=== PATIENT | female | born 1960 | race Caucasian/White ===

== ENCOUNTER 2020-03-23 09:13 | Outpatient (CLI) | payer OTHER, SELFPAY ==
--- NOTE | ~2020-03-23 | MM_ITS ---
EXAMINATION: MM screening [facility] BI w liz HISTORY: Screening mammogram TECHNIQUE: Craniocaudal and mediolateral oblique 3-D tomosynthesis images were obtained and synthetic 2-D images were generated. CAD analysis was submitted and interpreted. COMPARISON: Comparison to multiple prior studies sequentially, with oldest reviewed study dated 03/10. BREAST PARENCHYMAL COMPOSITION: The breasts are heterogeneously dense, which may obscure small masses . FINDINGS: There is no evidence of suspicious mass, calcification, or architectural distortion to sugg est malignancy in either breast. There has been no suspicious interval change. IMPRESSION: 1. No mammographic evidence of malignancy. 2. Recommend routine screening mammography in one year. BI-RADS Category 1: Negative Reviewed, dictated and finalized at location A.
== END 2020-03-23 09:14 | disposition home or self-care (01) ==
LOC: ANHIMG 09:15
PROVIDERS: Visit Provider Advanced Practice Midwife
DX: Z12.31 Encounter for screening mammogram for malignant neoplasm of breast (principal)
CPT/HCPCS: 77063; 77067

== ENCOUNTER 2021-04-26 09:52 | Outpatient (CLI) | payer OTHER, SELFPAY ==
--- NOTE | ~2021-04-26 | MM_ITS ---
EXAMINATION: MM screening [facility] BI w liz HISTORY: Screening mammogram TECHNIQUE: Craniocaudal and mediolateral oblique 3-D tomosynthesis images were obtained and synthetic 2-D images were generated. CAD analysis was submitted and interpreted. COMPARISON: 03/23/2020, 03/12/2019, 02/11/2017 BREAST PARENCHYMAL COMPOSITION: The breasts are heterogeneously dense, which may obscure small masses . FINDINGS: There is no evidence of suspicious mass, calcification, or architectural distortion to sugg est malignancy in either breast. There has been no suspicious interval change. IMPRESSION: 1. No mammographic evidence of malignancy. 2. Recommend routine screening mammography in one year. BI-RADS Category 1: Negative Reviewed, dictated and finalized at location A.
== END 2021-04-26 09:53 | disposition home or self-care (01) ==
LOC: ANHIMG 09:55
PROVIDERS: PCP Family Medicine; Visit Provider Nurse Practitioner Obstetrics & Gynecology
DX: Z12.31 Encounter for screening mammogram for malignant neoplasm of breast (principal)
CPT/HCPCS: 77063; 77067

== ENCOUNTER → 2021-05-07 02:24 | Outpatient (CLI) | payer OTHER, SELFPAY ==
[2021-05-08 15:38] LABS: SARS-CoV-2 RNA PCR Negative
== END ==
PROVIDERS: PCP Family Medicine; Visit Provider Internal Medicine Gastroenterology
DX: Z01.812 Encounter for preprocedural laboratory examination (principal); Z20.822 Contact with and (suspected) exposure to COVID-19
CPT/HCPCS: C9803; U0003; U0005

== ENCOUNTER 2021-05-10 00:31 | Day surgery (SDC) | payer OTHER, SELFPAY ==
[2021-05-01 09:44] VITALS: BMI 24.9
[2021-05-10 09:57] VITALS: BP 134/75; PULSE 61; RESP 16; TEMP 36.3; O2SAT 100; BMI 24.2
[2021-05-10] MEDS: LACTATED RINGERS 1,000 ML 30 ML IV CONT (10:22)
--- NOTE | 2021-05-10 10:22 | WPDGICN ---
Assessment and Plan Assessment and plan (1) Family history of colon cancer in father: Code(s): Z80.0 - Family history of malignant neoplasm of digestive organs Status: Acute Assessment and Plan: Patient's father had colon cancer. Plan is for screening colonoscopy now and consider this at intervals in the future. GI Consult Note Consult date/time: 05/10/21 10:22 HPI: Maggie Forde is a 60 year old female Presents for screening colonoscopy. Patient reports that her current weight appetite bowel movements are normal. Her family history is significant her father had colon cancer. Patient states that her bowel movements are regular. She denies any blood in her stools. She presents for colonoscopy today. Review of Systems Review of Systems: All systems reviewed & are unremarkable except as noted in HPI and below PMFSH Family History Family History (Updated 05/10/16 @ 23:19 by DOCTOR UNKNOWN) Father Hypertension Carcinoma of colon Family history of diabetes mellitus in first degree relative Sibling Family history of diabetes mellitus in first degree relative Other Family history of cardiovascular disease Social History Social History Smoking status: Never smoker Alcohol intake: current Drinks per week: 6 Living arrangements: with family Spiritual care concerns: No Meds Home Medications and Allergies Home Medications Medication Instructions Recorded Confirmed Type calcium carbonate 250 mg PO DAILY 05/01/21 05/10/21 History ergocalciferol (vitamin D2) 1,000 unit PO DAILY 05/01/21 05/10/21 History [Vitamin D2] multivit with min-folic acid 1 tablet PO DAILY 05/01/21 05/10/21 History [Adult One Daily Multivitamin] Allergies Allergy/AdvReac Type Severity Reaction Status Date / Time No Known Allergies Allergy Verified 05/10/21 09:56 Vital Signs Vital Signs - 24 hr 05/10/21 09:57 Temperature 97.4 F L Pulse Rate 61 Respiratory Rate 16 Blood Pressure 134/75 Pulse Oximetry 100 Exam Narrative: Physical exam reveals patient be alert. Vital signs stable. HEENT exam is unremarkable. Patient is anicteric. Lungs are clear to auscultation and percussion. Heart is without murmur or extra sounds. Abdominal exam bowel sounds are present soft nontender with no organomegaly. Digital external rectal exam is normal.
--- NOTE | 2021-05-10 10:25 | WPDANESEPPF ---
Anes - Initial Pre Proc Eval Procedure: Operation Date: 05/10/21 10:30 Proposed Procedures p Screening Colonoscopy - Aydin Ca MD Date/Time: 05/10/21 10:25 Surgeon: Aydin Ca MD Pre Op Diagnosis: neoplasm screening Patient Data Age: 60 Gender: F Height: 1.68 m Weight: 68 kg Last Vital Signs Temp 36.3 C L 05/10/21 09:57 Pulse 61 05/10/21 09:57 Resp 16 05/10/21 09:57 BP 134/75 05/10/21 09:57 Pulse Ox 100 05/10/21 09:57 Allergies Allergy/AdvReac Type Severity Reaction Status Date / Time No Known Allergies Allergy Verified 05/10/21 09:56 Home Medications Medication Instructions Recorded Confirmed Type calcium carbonate 250 mg PO DAILY 05/01/21 05/10/21 History ergocalciferol (vitamin D2) 1,000 unit PO DAILY 05/01/21 05/10/21 History [Vitamin D2] multivit with min-folic acid 1 tablet PO DAILY 05/01/21 05/10/21 History [Adult One Daily Multivitamin] Patient hx anesthesia problems: none Family hx anesthesia problems: none PMFSH Family History Family History Father Hypertension Carcinoma of colon Family history of diabetes mellitus in first degree relative Sibling Family history of diabetes mellitus in first degree relative Other Family history of cardiovascular disease Social History Social History Smoking status: Never smoker Alcohol intake: current Drinks per week: 6 Living arrangements: with family Spiritual care concerns: No Anes - Eval Final PreProcedure Day of Procedure 05/10/21 10:25 Patient weight: normal Heart: regular rate and rhythm Lungs: clear to auscultation Airway: Mallampati scale class 1 Neurological: alert and oriented Last oral intake: >/= 8 hours ASA classification: I Emergent: no Anesthetic plan: proceed Anesthesia type and monitoring: general GIVS and standard monitoring Informed Consent: The patient's anesthetic plan and its attendant risks and benefits were discussed with the patient/family/POA. Questions were solicited and answers provided to the satisfaction of the patient/family/POA.
[2021-05-10 10:51] VITALS: BP 125/63; PULSE 50; RESP 16; O2SAT 100
[2021-05-10 11:01] VITALS: BP 127/71; PULSE 55; RESP 16; O2SAT 100
[2021-05-10 11:10] VITALS: BP 137/77; PULSE 50; RESP 16; O2SAT 100
== END 2021-05-10 11:18 | disposition home or self-care (01) ==
PROVIDERS: PCP Family Medicine; Visit Provider Internal Medicine Gastroenterology
PROC: 0DJD8ZZ Inspection of Lower Intestinal Tract, Via Natural or Artificial Opening Endoscopic (ICD-10-PCS; CPT 45378; principal; 2021-05-10 10:30)
DX: Z12.11 Encounter for screening for malignant neoplasm of colon (principal); K64.8 Other hemorrhoids; K57.30 Diverticulosis of large intestine without perforation or abscess without bleeding; Z80.0 Family history of malignant neoplasm of digestive organs
CPT/HCPCS: 45378; C9803; J2704; J7120; U0003; U0005

== ENCOUNTER → 2021-07-17 15:08 | Outpatient (CLI) | payer OTHER, SELFPAY ==
--- NOTE | ~2021-07-17 | XR_ITS ---
XR knee RT 3V DATE: 07/17/2021 15:24 INDICATION: Right knee pain TECHNIQUE: [place] and standing AP and lateral views COMPARISON: None FINDINGS: There is mild loss of height of the medial compartment joint space. No fracture or dislocation, periosteal reaction or bone destruction, radiopaque intra-articular loose body or chondrocalcinosis is detected. IMPRESSION: Mild loss of height of medial compartment joint space suggesting mild degenerative change Reviewed, dictated and finalized at location A. IMPRESSION: Mild loss of height of medial compartment joint space suggesting mi ld degenerative change
== END ==
PROVIDERS: Visit Provider Orthopaedic Surgery
DX: M25.561 Pain in right knee (principal); R93.6 Abnormal findings on diagnostic imaging of limbs
CPT/HCPCS: 73562

== ENCOUNTER 2021-07-18 10:03 | Outpatient (CLI) | payer OTHER, SELFPAY ==
--- NOTE | ~2021-07-18 | US_ITS ---
EXAMINATION: US venous doppler LE RT DATE: 07/18/2021 10:34 INDICATION: Right lower limb pain. TECHNIQUE: Grayscale ultrasound images without and with compression and Doppler ultrasound images of the right lower extremity veins were obtained. COMPARISON: None. FINDINGS: The visualized portions of right common femoral vein, profunda (deep) femoral vein, femoral vein, pop liteal vein, peroneal veins, posterior tibial veins, and greater saphenous vein outflow are patent. T here is a large Villarreal's cyst measuring 5.2 x 2.4 x 3.7 cm. IMPRESSION: 1. No deep venous thrombosis. 2. Large Villarreal's cyst. Reviewed, dictated and finalized at location A.
[2021-07-18 11:26] LABS: Basophils Absolute Auto 0.1 K/mm3 (0.0-0.1); Basophils Percent Auto 0.9 % (0.2-1.2); Eosinophils Absolute Auto 0.2 K/mm3 (0-0.3); Eosinophils Percent Auto 3.3 % (0-4.4); Hematocrit 40.2 % (37.0-47.0); Immature Granulocyte Absolute 0.03 K/mm3 (0.00-0.031); Immature Granulocyte Percent A 0.5 % (0-0.5); Lymphocytes Absolute Auto 1.35 K/mm3 (0.9-3.2); Lymphocytes Percent Auto 23.4 % (18.3-44.2); Mean Corpuscular HGB Conc 32.3 g/dl (32-36); Mean Corpuscular Volume 89.5 fl (80-100); Mean Platelet Volume 10.5 fl (7.4-10.4); Monocytes Absolute Auto 0.5 K/mm3 (0.1-0.6); Neutrophils Absolute Auto 3.7 K/mm3 (1.3-6.7); Neutrophils Percent Auto 63.9 % (45.5-73.1); Platelet Count Result 326 k/mm3 (150-375); Red Blood Count 4.49 M/mm3 (4.2-5.4); Red Cell Distribution Width 14.7 % (11.5-14.5); White Blood Count 5.8 K/mm3 (4.5-10.0)
[2021-07-18 11:46] LABS: CRP < 0.5 mg/dL (<1.0); Uric Acid 4.9 mg/dL (2.5-7.5)
[2021-07-18 12:14] LABS: Erythrocyte Sedimentation Rate 7 mm/hr (0-20)
[2021-07-18 12:20] LABS: Rheumatoid Factor < 8.6 IU/ML (<12)
== END 2021-07-18 10:04 | disposition home or self-care (01) ==
PROVIDERS: PCP Family Medicine; Visit Provider Orthopaedic Surgery
DX: M79.661 Pain in right lower leg (principal); M79.89 Other specified soft tissue disorders; M17.0 Bilateral primary osteoarthritis of knee; M06.9 Rheumatoid arthritis, unspecified; M71.21 Synovial cyst of popliteal space [Baker], right knee
CPT/HCPCS: 36415; 84550; 85025; 85652; 86038; 86140; 86430; 93971

== ENCOUNTER → 2022-04-19 10:30 | Outpatient (CLI) | payer BC, SELFPAY ==
--- NOTE | ~2022-04-19 | MR_ITS ---
EXAMINATION: MR knee RT wo con DATE: 04/19/2022 10:59 INDICATION: Synovial cyst of the popliteal space of the right knee TECHNIQUE: Magnetic resonance imaging (MRI) of the right knee was performed without intravenous contr ast. Sequences included coronal PD-weighted FSE, coronal PD-weighted FS FSE, sagittal T2-weighted FS E, sagittal PD-weighted FS FSE and axial PD weighted fat saturated FSE. COMPARISON: None. FINDINGS: Medial compartment: Longitudinal horizontal tear extending to the intra-articular surface of the body and posterior horn of the medial meniscus. Mild partial-thickness cartilage loss with shallow chondral surface regularit y along the anterior, central portion of the posterior weightbearing medial femoral condyle as well a s at the anterior aspect of the medial tibial plateau. Lateral compartment: Lateral meniscus is normal. Articular cartilage is normal. Patellofemoral compartment: Partial-thickness chondral fissure with mild underlying subarticular edema-like signal change extendi ng across the inferior aspect of the lateral patellar facet. Mild partial-thickness cartilage loss wi th mild surface regularity along the superolateral aspect of the lateral trochlea. Ligaments and tendons: Anterior and posterior cruciate ligaments are normal. The medial collateral ligament and fibular alix ateral ligament complex are normal. Mild tendinopathy and moderate size enthesophyte at the patellar insertion of the distal quadriceps tendon. Patellar tendon is normal. The visualized medial and later al hamstring tendons as well as the iliotibial band are normal. Fluid: Physiologic amount of fluid in the joint space. No loose osteochondral bodies identified. 5.2 x 4.3 x 2.4 cm Villarreal's cyst at the popliteal fossa. Osseous/other: Normal marrow signal aside from the previous noted mild subarticular edema-like signal change at the lateral patellar facet. No fracture or pathologic marrow replacing process. IMPRESSION: 1. 5.2 x 4.3 x 2.4 cm Villarreal's cyst. 2. Longitudinal horizontal tear of the body and posterior horn of the medial meniscus. 3. 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 4. Chronic mild distal quadriceps enthesopathy. Reviewed, dictated and finalized at location A. IMPRESSION: 1. 5.2 x 4.3 x 2.4 cm Villarreal's cyst. 2. Longitudinal horizontal tear of the body and posterior horn of the medial me niscus. 3. 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 4. Chronic mild distal quadriceps enthesopathy.
== END ==
PROVIDERS: PCP Family Medicine; Visit Provider Orthopaedic Surgery
DX: M71.21 Synovial cyst of popliteal space [Baker], right knee (principal); M17.11 Unilateral primary osteoarthritis, right knee; S83.241A Other tear of medial meniscus, current injury, right knee, initial encounter; X58.XXXA Exposure to other specified factors, initial encounter
CPT/HCPCS: 73721

== ENCOUNTER 2022-05-02 10:20 | Outpatient (CLI) | payer BC, SELFPAY ==
--- NOTE | ~2022-05-02 | MMUS_ITS ---
EXAMINATION: MM diagnostic shira LT w liz, US breast LT limited HISTORY: Palpable left breast abnormality. TECHNIQUE: Additional 3-D tomosynthesis images of the left breast were performed and synthetic 2-D im ages were generated. CAD analysis was submitted and interpreted. High resolution Limited left breast ultrasound was performed. COMPARISON: Comparison to multiple prior studies sequentially, with oldest reviewed study dated 02/02. BREAST PARENCHYMAL COMPOSITION: The breasts are heterogenously dense, which may obscure small masses FINDINGS: MAMMOGRAPHIC FINDINGS: There are no suspicious masses, calcifications or architectural distortion in the left breast to sugg est malignancy. ULTRASOUND: Limited left breast ultrasound: Normal heterogeneous echotexture without focal solid or cystic mass. IMPRESSION: 1. No evidence for malignancy in the left breast. 2. Routine yearly screening mammogram and regular clinical breast examination are recommended. BI-RADS Category 1: Negative Reviewed, dictated and finalized at location L. IMPRESSION: 1. No evidence for malignancy in the left breast. 2. Routine yearly screening mammogram and regular clinical breast examination a re recommended. BI-RADS Category 1: Negative
== END 2022-05-02 10:21 | disposition home or self-care (01) ==
PROVIDERS: PCP Family Medicine; Visit Provider Obstetrics & Gynecology
DX: N63.22 Unspecified lump in the left breast, upper inner quadrant (principal)
CPT/HCPCS: 76642; 77061; 77065; G0279

== ENCOUNTER 2023-02-24 09:06 | Outpatient (CLI) | payer BC, SELFPAY ==
--- NOTE | ~2023-02-24 | MM_ITS ---
EXAMINATION: MM screening [facility] BI w liz HISTORY: Screening mammogram TECHNIQUE: Craniocaudal and mediolateral oblique 3-D tomosynthesis images were obtained and synthetic 2-D images were generated. CAD analysis was submitted and interpreted. COMPARISON: 05/02/2022, 04/26/2021, 03/23/2020 BREAST PARENCHYMAL COMPOSITION: The breasts are heterogeneously dense, which may obscure small masses . FINDINGS: No suspicious mass, calcification, or architectural distortion are identified in either remberto ast to suggest malignancy. There has been no suspicious interval change. IMPRESSION: 1. No mammographic evidence of malignancy. 2. Recommend routine screening mammography in one year. BI-RADS Category 1: Negative Reviewed, dictated and finalized at location A.
== END 2023-02-24 09:07 | disposition home or self-care (01) ==
LOC: ANHIMG 09:12
PROVIDERS: PCP Family Medicine; Visit Provider Obstetrics & Gynecology
DX: Z12.31 Encounter for screening mammogram for malignant neoplasm of breast (principal)
CPT/HCPCS: 77063; 77067

== ENCOUNTER → 2023-04-02 14:20 | Outpatient (CLI) | payer BC, SELFPAY ==
--- NOTE | ~2023-04-02 | CT_ITS ---
Clinical Indication: Pulmonary nodule CT Scan of the Chest with Contrast: Technique: Contiguous sections were acquired throughout the chest after intravenous administration of 75 cc of Omnipaque 350. Dose reduction technique was used on this scan by utilizing automated exposu re control and iterative reconstruction technique. The dose-length product (DLP) was 169.02 mGy-cm. Findings: There is no evidence of any significant mediastinal, hilar or axillary lymphadenopathy. No large cent ral pulmonary embolus seen. There is no evidence of aortic dissection or aneurysm. There is no evidence of pleural or pericardial effusion. There is minimal biapical scarring. Several tiny calcified granulomas are present. No suspicious pulm onary nodule or consolidation. Images through the upper abdomen reveal no abnormalities. Impression: No evidence of pulmonary embolus, aortic dissection, or aortic aneurysm. No significant pulmonary abnormality. Reviewed, dictated and finalized at [facility]. Impression: No evidence of pulmonary embolus, aortic dissection, or aortic aneurysm. No significant pulmonary abnormality.
[2023-04-02 14:43] LABS: Estimated Glomerular Filt Rate > 60
== END ==
PROVIDERS: PCP Family Medicine; Visit Provider Family Medicine
DX: R91.1 Solitary pulmonary nodule (principal)
CPT/HCPCS: 71260; Q9967

== ENCOUNTER → 2023-07-12 10:22 | Outpatient (CLI) | payer BC, SELFPAY ==
--- NOTE | ~2023-07-12 | MR_ITS ---
EXAMINATION: MR cervical spine wo con DATE: 07/12/2023 11:05 INDICATION: Right-sided neck pain and tightness. TECHNIQUE: Magnetic resonance imaging (MRI) of the cervical spine was performed without intravenous c ontrast. Sequences included sagittal T2-weighted FSE, sagittal T2-weighted FS FSE, sagittal T1-weight ed FSE, axial MERGE, and axial T2-weighted FSE. COMPARISON: None FINDINGS: There is 5 degrees levocurvature of cervical spine. Vertebral body heights are normal. Ther e is mildly decreased disc height at C4-C5 and moderately decreased disc height at C6-C7. The spinal cord signal intensity is normal. The following disc levels are specifically discussed: C2-C3: The disc does not extend beyond the endplate margin. There is no uncovertebral joint osteoarth ritis. There is severe bilateral facet joint osteoarthritis. There is mild bilateral neural foraminal stenosis. There is no central canal stenosis. C3-C4: The disc does not extend beyond the endplate margin. There is moderate left uncovertebral join t osteoarthritis. There is severe bilateral facet joint osteoarthritis. There is mild bilateral neura l foraminal stenosis. There is no central canal stenosis. C4-C5: The disc does not extend beyond the endplate margin. There is no uncovertebral joint osteoarth ritis. There is severe right facet joint osteoarthritis. There is mild right neural foraminal stenosi s. There is no central canal stenosis. C5-C6: The disc is bulging. There is mild right and moderate left uncovertebral joint osteoarthritis. There is severe right and mild left facet joint osteoarthritis. There is mild bilateral neural malik inal stenosis. There is mild central canal stenosis. C6-C7: The disc is bulging. There is severe right and moderate left uncovertebral joint osteoarthriti s. There is moderate right and severe left facet joint osteoarthritis. There is moderate right and mi ld left neural foraminal stenosis. There is mild central canal stenosis. C7-T1: The disc does not extend beyond the endplate margin. There is mild bilateral uncovertebral agustina nt osteoarthritis. There is mild right and severe left facet joint osteoarthritis. There is mild bila teral neural foraminal stenosis. There is no central canal stenosis. IMPRESSION: 1. Moderate cervical spondylosis. Reviewed, dictated and finalized at location E.
== END ==
PROVIDERS: PCP Family Medicine; Visit Provider Family Medicine
DX: M47.892 Other spondylosis, cervical region (principal)
CPT/HCPCS: 72141

== ENCOUNTER 2024-04-08 08:55 | Outpatient (CLI) | payer BC, SELFPAY ==
--- NOTE | ~2024-04-08 | MM_ITS ---
EXAMINATION: MM screening shira BI w liz HISTORY: Screening mammogram TECHNIQUE: Craniocaudal and mediolateral oblique 3-D tomosynthesis images were obtained and synthetic 2-D images were generated. CAD analysis was submitted and interpreted. COMPARISON: 02/24/2023, 05/02/2022, 04/26/2021 BREAST PARENCHYMAL COMPOSITION:Dense: The breasts are heterogeneously dense, which may obscure small masses. FINDINGS: There is a 1.5 cm low-density mass at the slightly upper, slightly inner right breast. No o ther suspicious interval change. No suspicious about the left breast. IMPRESSION: 1.5 cm low-density upper, inner right breast mass. Spot compression views and ultrasound are recomme nded for further evaluation. BI-RADS Category 0: Incomplete: Needs additional imaging evaluation. Reviewed, dictated and finalized at location . IMPRESSION: 1.5 cm low-density upper, inner right breast mass. Spot compression views and ultrasound are recommended for further evaluation. BI-RADS Category 0: Incomplete: Needs additional imaging evaluation.
== END 2024-04-08 08:56 | disposition home or self-care (01) ==
PROVIDERS: PCP Family Medicine; Visit Provider Obstetrics & Gynecology
DX: Z12.31 Encounter for screening mammogram for malignant neoplasm of breast (principal); N63.12 Unspecified lump in the right breast, upper inner quadrant
CPT/HCPCS: 77063; 77067

== ENCOUNTER 2024-04-20 11:23 | Outpatient (CLI) | payer BC, SELFPAY ==
--- NOTE | ~2024-04-20 | MMUS_ITS ---
EXAMINATION: MM diagnostic shira RT w liz, US breast RT limited HISTORY: Follow-up right breast mass seen on prior examination TECHNIQUE: Additional 3-D tomosynthesis images of the right breast were performed and synthetic 2-D i mages were generated. CAD analysis was submitted and interpreted. High resolution Limited right breas t ultrasound was performed. COMPARISON: Comparison to multiple prior studies sequentially, with oldest reviewed study dated 03/12. BREAST PARENCHYMAL COMPOSITION: Not dense: There are scattered areas of fibroglandular density. FINDINGS: MAMMOGRAPHIC FINDINGS: There is a persistent low-density mass in the upper central aspect of the right breast. There is a st able mass posterior medially in the right breast on CC view, unchanged. There are no suspicious calci fications or architectural distortion. ULTRASOUND: Limited right breast ultrasound: At 9:00, 5 cm from the nipple, there is a cluster of cysts, largest appearing approximately 9 mm. At 12:00, 4 cm from the nipple there is a 1.6 cm cyst, likely correspon ding to the mammographic finding. IMPRESSION: 1. No evidence for malignancy in the right breast. Benign findings. 2. Routine yearly screening mammogram and regular clinical breast examination are recommended. BI-RADS CATEGORY 2 - BENIGN FINDINGS Reviewed, dictated and finalized at location B. IMPRESSION: 1. No evidence for malignancy in the right breast. Benign findings. 2. Routine yearly screening mammogram and regular clinical breast examination a re recommended. BI-RADS CATEGORY 2 - BENIGN FINDINGS
== END 2024-04-20 11:24 | disposition home or self-care (01) ==
LOC: ANHIMG 11:24
PROVIDERS: PCP Family Medicine; Visit Provider Obstetrics & Gynecology
DX: R92.8 Other abnormal and inconclusive findings on diagnostic imaging of breast (principal)
CPT/HCPCS: 76642; 77061; 77065; G0279

== ENCOUNTER 2025-07-11 09:36 | Outpatient (CLI) | payer BC, SELFPAY ==
--- OUTSIDE RECORDS SUMMARY | 2024-06-22 03:45 | XMS_ITS ---
Author Organization [facility] Address [address] [place] [phone] Care Team Providers Care Cryogenics Repairer Name Role Phone Dr. aJcque Crane Primary Care Provider [phone] Herminia Mckinney Unavailable [phone] REASON FOR VISIT Yearly Check Up with [...] 06/22/2024 Encounters Encounter Location Date Provider Diagnosis [address] [address] 06/22/2024 Herminia Mckinney Encounter for genera l [...] Next Appt Details Provider Name:Dr. Jacque Dunbar [facility], 05/22/2026 09:30:00 AM, [address] [place], [address], [phone] Progress Notes * CASSANDRA JanetAnnOB:[birth year] (64 yo F)Acc No.[id number]:06/22/2024 Patient: Maggie Freitas Provider: Leslie Mckinney NP :1960 A ge:63 Y S ex:Female Date:06/22/2024 Phone: Address:[address] [place] [phone] Pcp:Dr. Jacque Crane Subjective: * Chief Complaints: [...] * Electronic signature of Dominik Mckinney on 07/11/2025 at 10:04 AM CDT Sign off status: Pending * Provider: Leslie Mckinney NP Date: 06/22/2024 Generated for Latesha barba/Rossy/Neetuitting on: 07/11/2025 10:04 AM CDT
--- OUTSIDE RECORDS SUMMARY | 2024-09-11 04:00 | XMS_ITS ---
Author Organization [facility] Address [address] [place] [phone] Care Team Providers Care Corporate Planner Name Role Phone Dr. Jacque Crane Primary Care Provider [phone] Migration, Provider Unavailable Unavailable REASON FOR VISIT EMR-Jayden Encounters Encounter Location Date Provider Diagnosis [facility] [address] [place] [address] 09/11/2024 Provider Migration Plan Of Treatment Medication [...] Provider Name:Dr. Jacque rodas, 05/22/2026 09:30:00 AM, [address] [place] [address], [place], [address], [phone] Progress Notes * Zachariah FORDEOB:[birth year] (64 yo F)Acc No.[id number]:09/11/2024 Patient: Maggie BUNCH :1960 A ge:64 Y S ex:Female Phone: Address:[address] [place] [address], [phone] * Refills Stop Cyclobenzaprine HCl Tablet, 5 [...]
--- OUTSIDE RECORDS SUMMARY | 2024-09-12 04:00 | XMS_ITS ---
Author Organization [facility] Address [address] [place] [address] [place] [address] Care Team Providers Care Potato Peeler Name Role Phone Dr. Jacque Crane Primary Care Provider [phone] Migration, Provider Unavailable Unavailable Allergies Allergen (clinical [...] only Encounters Encounter Location Date Provider Diagnosis [facility] [address] [place] [address] 09/12/2024 Provider Migration Plan Of Treatment Next Appt Details Provider Name:Dr. Jacque Dunbar [facility], 05/22/2026 09:30:00 AM, [address] [facility], [place], [address], [phone] Progress Notes * FORDEZachariah QUISPEOB:[birth year] (64 yo F)Acc No.[id number]:09/12/2024 Patient: Maggie BUNCH :1960 A ge:64 Y S ex:Female Phone: Address:[address] [place] [address], [place], [address] Subjective: * Chief Complaints: * E MR-Jayden [...]
--- NOTE | ~2025-07-11 | MM_ITS ---
EXAMINATION: MM screening shira BI w liz HISTORY: Screening TECHNIQUE: Craniocaudal and mediolateral oblique 3-D tomosynthesis images were obtained and synthetic 2-D images were generated. CAD analysis was submitted and interpreted. COMPARISON: Comparison to multiple prior studies sequentially, with oldest reviewed study dated 03/23/2020. BREAST PARENCHYMAL COMPOSITION: Dense: The breasts are heterogeneously dense, which may obscure small masses FINDINGS: There are developing obscured masses in the right breast. There are benign-appearing left breast calcifications. No suspicious masses or architectural distortion in the left breast to suggest malignancy. IMPRESSION: 1. New right breast masses. 2. Additional mammographic views and possible breast ultrasound are recommended. BI-RADS Category 0: Incomplete: Needs additional imaging evaluation. Reviewed, dictated and finalized at location B. IMPRESSION: 1. New right breast masses. 2. Additional mammographic views and possible breast ultrasound are recommended . BI-RADS Category 0: Incomplete: Needs additional imaging evaluation.
--- OUTSIDE RECORDS SUMMARY | 2025-07-11 10:04 | XMS_ITS | Clinical Summary ---
Author Organization [facility] Address [address] [place] [address] Care Team Providers Care Custody Officer Name Role Phone Dong Casper MD Primary Care Provider [phone] Allergies No known active allergies Medications No known medications Active Problems No known active problems Surgical History Surgery Date Site/Laterality Comments HYSTERECTOMY 10/13/2009 - 10/12/2010 LAMINECTOMY 10/13/2011 - 10/12/2012 MASS EXCISION 07/14/2019 Right forehead Social History Tobacco Use Types Packs/Day Years Used Date Smoking Tobacco: Never Personal Safety Answer Date Recorded Getting School Help Needed Not on file 12/27 Comments Unknown Sex and Gender Information Value Date Recorded Sex Assigned at Not on file Legal Sex Female 2:01 PM CDT Gender Identity Not on file Sexual Orientation Not on file Obstetrics History Last Filed Vital Signs Vital Sign Reading Time Taken Comments Blood Pressure 139/71 09/21/2020 2:24 PM [employer] Pulse 67 09/21/2020 2:24 PM [employer] Temperature 36.6 C (97.9 F) 09/21/2020 2:24 PM [employer] Respiratory Rate - - Oxygen Saturation 100% 09/21/2020 2:24 PM [employer] Inhaled Oxygen Concentration - - Weight 68 kg (150 lb) 09/21/2020 2:24 PM [employer] Height 167.6 cm (5' 6) 09/21/2020 2:24 PM [employer] Body Mass Index 24.21 09/21/2020 2:24 PM [employer] Plan of Treatment Not on file Insurance [employer] Care Teams Custody Officer Relationship Specialty Start Date End Date Dong Casper MD [address] [place] [address] PCP - General Family Practice 06/22/19
--- OUTSIDE RECORDS SUMMARY | 2025-07-11 10:04 | XMS_ITS | Patient Health Record ---
Author Organization [facility] dicine Address [address] [place] [address] Care Team Providers Care Plan Coordinator Name Role Phone Dr. Jacque Crane Primary Care Provider [phone] Migration, Provider Unavailable Unavailable Allergies Allergen (clinical drug ingredient) Drug/Non Drug Allergy documented on EMR Reaction Allergy Type Onset Date Status escitalopram Lexapro Unknown Drug Allergy 07/02/2021 Act govind Results Component Value Reference Range Flag Notes Uric Acid Reviewed date:05/26/2025 06:34:28 PM Interpretation: Performing Lab: Notes/Report: LOCATION: [facility] Performed by: [place] [address] Veterinarian Poultry: Genaro Bruce DO Uric Acid 5.4 2.3-6.6 mg/dL LOCATION LOCATION: [facility] Iron Level and TIBC Reviewed date:05/26/2025 06:34:28 PM Interpretation: Performing Lab: Notes/Report: LOCATION: [facility] Performed by: [place] [address] Veterinarian Poultry: Genaro Bruce DO Iron Lvl 73 50-212 mcg/dL LOCATION LOCATION: [facility] Transferrin 196 203-362 mg/dL L LOCATION LOCATION: [facility] TIBC 274 250-420 mcg/dL LOCATION LOCATION: [facility] Iron Sat 27 20-55 % LOCATION LOCATION: [facility] Vitamin B12 Reviewed date:05/26/2025 06:34:28 PM Interpretation: Performing Lab: Notes/Report: LOCATION: [facility] Performed by: [place] [address] Veterinarian Poultry: Genaro Bruce DO Vitamin B12 Lvl 788 180-914 pg/mL Vitamin B12 Interpretation: Normal Range: 180-914 pg/mL Indeterminate: 140-180 pg/mL Deficient: <140 pg/mL LOCATION LOCATION: [facility] Thyroid Stimulating Hormone Reviewed date:05/26/2025 06:34:28 PM Interpretation: Performing Lab: Notes/Report: LOCATION: [facility] Test Performed by: [place] [address] Veterinarian Poultry: Genaro Bruce DO TSH 1.00 0.45-5.33 mcIU/mL LOCATION LOCATION: [facility] Magnesium Reviewed date:05/26/2025 06:34:28 PM Interpretation: Performing Lab: Notes/Report: LOCATION: [facility] Test Performed by: [place] [address] Veterinarian Poultry: Genaro Bruce DO Magnesium Lvl 2.1 1.6-2.4 mg/dL LOCATION LOCATION: [facility] Lipid Panel {Chol, Trig, HDL , LDL} Reviewed date:05/26/2025 06:34:28 PM Interpretation: Performing Lab: Notes/Report: LOCATION: [facility] Test Performed by: [place] [address] Veterinarian Poultry: Genaro Bruce DO Cholesterol Total 204 <=199 mg/dL H LOCATION LOCATION: [facility] Triglycerides 86 0-149 mg/dL Triglyceride Reference Ranges: <150 mg/dL Normal 150 - 199 mg/dL Borderline High 200 - 499 mg/dL High >=500 mg/dL Very High LOCATION LOCATION: [facility] LDL 129 <=100 mg/dL H LDL Optimal: <100 Near or above optimal: 100-129 Borderline high: 130-159 High: 160-189 Very high: >=190 Coronary heart disease risk factors should be considered when determining LDL goals. Please refer to ATPIII guidelines for further information. If LDL is not calculated, please call the lab to add on the direct LDL methodology, if desired. LOCATION LOCATION: [facility] HDL 58 23-92 mg/dL LOCATION LOCATION: [facility] Non HDL Cholesterol 147 <=130 mg/dL H LOCATION LOCATION: [facility] Chol/HDL 4 0-5 LOCATION LOCATION: [facility] Comprehensive Metabolic Pane l Reviewed date:05/26/2025 06:34:28 PM Interpretation: Performing Lab: Notes/Report: LOCATION: [facility] Test Performed by: [place] [address] Veterinarian Poultry: Genaro Bruce DO Glucose Lvl 78 74-109 mg/dL ADA risk stratification for diabetes <100 mg/dL = Normal 100-125 mg/dL = Increased risk for future diabetes >=126 mg/dL = Diabetes, if on more than one testing occasion LOCATION LOCATION: [facility] BUN 10 7-25 mg/dL LOCATION LOCATION: [facility] Creatinine Lvl 0.71 0.60-1.20 mg/dL LOCATION LOCATION: [facility] eGFR CKD-EPI >90 >=90 mL/min/1.73 m2 The CKD-EPI equation is validated in individuals 18 years of age and older. It is less accurate in patients with extremes of muscle mass, restriction of dietary protein, ingestion of creatine, extra-renal metabolism of creatinine, or treatment with medications that affect renal tubular creatinine secretion. GFR Categories in Chronic Kidney Disease (CKD) GFR GFR (mL/min/1.73 Category: square meters): Interpretation: G1 90 or greater Normal or high* G2 60-89 Mild decrease* G3a 45-59 Mild to moderate decrease G3b 30-44 Moderate to severe decrease G4 15-29 Severe decrease G5 14 or less Kidney failure *In the absence of evidence of kidney damage, neither GFR category G1 nor G2 fulfill the criteria for CKD (Kidney Int Suppl 2013;3:1-150) LOCATION LOCATION: [facility] Calcium Lvl 8.8 8.6-10.3 mg/dL LOCATION LOCATION: [facility] Sodium Lvl 141 136-145 mmol/L LOCATION LOCATION: [facility] Potassium Lvl 4.9 3.5-5.1 mmol/L LOCATION LOCATION: [facility] Chloride Lvl 105 98-107 mmol/L LOCATION LOCATION: [facility] CO2 32 21-31 mmol/L H LOCATION LOCATION: [facility] Anion Gap 4.4 <=16.0 mmol/L LOCATION LOCATION: [facility] Alk Phos 46 34-104 unit/L LOCATION LOCATION: [facility] Bilirubin Total 0.3 0.3-1.0 mg/dL LOCATION LOCATION: [facility] Albumin Lvl 4.2 3.5-5.2 g/dL LOCATION LOCATION: [facility] Protein Total 6.3 6.4-8.9 g/dL L LOCATION LOCATION: [facility] Albumin/Globulin Ratio 2.0 1.1-2.5 LOCATION LOCATION: [facility] ALT 13 7-52 unit/L LOCATION LOCATION: [facility] AST 20 13-39 unit/L LOCATION LOCATION: [facility] CBC w Auto Diff Reviewed date:05/26/2025 06:34:28 PM Interpretation: Performing Lab: Notes/Report: LOCATION: [facility] Test Performed by: [place] [address] Veterinarian Poultry: Genaro Bruce, WBC 4.5 4.0-11.7 K/mcL LOCATION LOCATION: [facility] RBC 4.50 3.80-5.41 x10*6/mcL LOCATION LOCATION: [facility] Hgb 12.6 11.3-15.2 g/dL LOCATION LOCATION: [facility] Hct 38.7 33.2-45.3 % LOCATION LOCATION: [facility] MCV 85.9 79.5-98.1 fL LOCATION LOCATION: [facility] MCH 28.1 27.0-34.2 pg LOCATION LOCATION: [facility] MCHC 32.7 31.8-35.3 g/dL LOCATION LOCATION: [facility] RDW 14.6 12.0-16.4 % LOCATION LOCATION: [facility] Platelets 238 149-393 K/mcL LOCATION LOCATION: [facility] MPV 9.3 7.0-11.0 fL LOCATION LOCATION: [facility] Neutro Auto 41.5 45.3-79.0 % L LOCATION LOCATION: [facility] Lymph Auto 44.9 11.8-45.9 % LOCATION LOCATION: [facility] [place] Auto 8.8 4.4-12.0 % LOCATION LOCATION: [facility] Eosinophil Auto 4.1 0.0-6.3 % LOCATION LOCATION: [facility] Basophil Auto 0.7 0.2-1.6 % LOCATION LOCATION: [facility] Neutro Absolute 1.9 2.4-8.4 x10*3/mcL L LOCATION LOCATION: [facility] Lymph Absolute 2.0 0.8-3.7 x10*3/mcL LOCATION LOCATION: [facility] [place] Absolute 0.4 0.3-1.1 x10*3/mcL LOCATION LOCATION: [facility] Eos Absolute 0.2 0.0-0.5 x10*3/mcL LOCATION LOCATION: [facility] T4 Free Reviewed date:05/26/2025 06:34:28 PM Interpretation: Performing Lab: Notes/Report: LOCATION: [facility] Test Performed by: [place] [address] Veterinarian Poultry: Genaro Bruce DO T4 Free 0.89 0.60-1.70 ng/dL LOCATION LOCATION: [facility] Ferritin Reviewed date:05/26/2025 06:34:28 PM Interpretation: Performing Lab: Notes/Report: LOCATION: [facility] Test Performed by: [place] [address] Veterinarian Poultry: Genaro Bruce DO Ferritin Lvl 102.0 11.0-306.8 ng/mL LOCATION LOCATION: [facility] Hemoglobin A1c {Glycosylated } Reviewed date:05/26/2025 06:34:28 PM Interpretation: Performing Lab: Notes/Report: LOCATION: [facility] Test Performed by: [place] [address] Veterinarian Poultry: Genaro Bruce DO Hemoglobin A1c 5.3 <=6.4 % Hemoglobin A1C < 5.7% = Normal 5.7-6.4% = Increased risk for future diabetes >=6.5% = Diabetes LOCATION LOCATION: [facility] eAvg Glucose 105 <=117 mg/dL eAG Reference Range <117 mg/dL = Normal 117-137 mg/dL = Increased Risk For Future Diabetes >137 mg/dL = Diabetes LOCATION LOCATION: [facility] Reason For Referral No Information Medications Medication SIG (Take, Route, Frequency, Duration) Notes Start Date End Date Status Magnesium Oxide 400 MG Tablet 1 Oral every day; Duration: 0 02/11/2022 Active Semaglutide 1 mg/dose (4 mg/3 mL) subcutaneous; Duration: 0 *Pick strength-form from [employer] for eRX* 06/22/2024 Active Progesterone 200 MG Capsule 1 capsule at bedtime Orally Once a day Active Biotin 1000 MCG Tablet 1 Oral every day; Duration: 0 02/11/2022 Active Calcium 600 oral; Duration: 0 *Pick strength-form from [employer] for eRX* 02/11/2022 Active Immunizations Vaccine Route Administration Date Status Comme nts Shingrix Unknown 02/11/2022 Administered Shingrix Unknown 06/30/2023 Administered Tdap Unknown 11/17/2018 Administered Tdap Unknown 07/09/2019 Administered Influenza, seasonal, injecta ble, preservative free, 6-35 months Unknown 07/09/2019 Administered Social History Social History Additional Details Category Social Info Options Details Migrated Social History Migrated Social History Tobacco history:Never smoker , Alcohol history:Currently drinks alcohol ,notes : drinks on weekends only Problems Problem Type SNOMED Code ICD Code Onset Dates Problem Status W/U Status Risk Notes Problem Anemia (058788046) Anemia, unspecified (D64.9) 02/12/20 Active confirmed Problem Hyperlipidemia (14107205) Hyperlipidemia, unspecified (E78.5) 06/27/20 Active confirmed Problem Hypomagnesemia (092434289) Hypomagnesemia (E83.42) Active confirmed Problem Spasmodic torticollis (72332560) Spasmodic torticollis (G24.3) 06/27/20 23 Active confirmed Problem Insomnia (057768553) Other insomnia (G47.09) Active confirmed Problem Pulmonary fibrosis (53250658) Pulmonary fibrosis, unspecified (J84.10) 04/04/20 23 Active confirmed Problem Spinal stenosis in cervical region (57306845) Spinal stenosis, cervical region (M48.02) 07/25/20 23 Active confirmed Problem Synovial popliteal cyst of right knee (disorder) (7249776007) Synovial cyst of popliteal space [Villarreal], right knee (M71.21) 02/12/20 22 Active confirmed Problem Paresthesia (finding) (98562698) Paresthesia of skin (R20.2) 06/27/20 23 Active confirmed Problem Postmenopausal state (16868918) Asymptomatic menopausal state (Z78.0) 02/12/20 22 Active confirmed Problem Family history of ischemic heart disease (456479055) Family history of ischemic heart disease and other diseases of the circulatory system (Z82.49) 06/27/20 23 Active confirmed Problem Normal body mass index (34670611) Body mass index (BMI) 24.0-24.9, adult (Z68.24) 06/27/20 23 Active confirmed Vital Signs Heart Rate 91 /min 06/01/2025 Temperature 97.7 degrees Fahrenheit 06/01/2025 Respiratory Rate 18 /min 06/01/2025 Height-cm 167.64 cm 06/01/2025 Oximetry 98 % 06/01/2025 Blood pressure diastolic 76 mm Hg 06/01/2025 Weight-kg 64.59 kg 06/01/2025 Height 66.00 in 06/01/2025 Blood pressure systolic 114 mm Hg 06/01/2025 Weight 142.4 lbs 06/01/2025 BMI 22.98 kg/m2 06/01/2025 Encounters Encounter Location Date Provider Diagnosis [address] [address] 06/01/2025 Dr. Jacque Crane Encounter for other screening for malignant neoplasm of breast Z12.39 ; Encounter for general adult medical examination without abnormal findings Z00.00 ; Other insomnia G47.09 ; Other fatigue R53.83 and Acute allergic rhinitis J30.[address] [address] 09/11/2024 Provider Migration [address] [address] 09/12/2024 Provider Migration [address] [address] 05/25/2025 Dr. Jacque Crane Encounter for general adult medical examination without abnormal findings Z00.00 ; Anemia, unspecified D64.9 ; Hyperlipidemia, unspecified E78.5 ; Elevated vitamin B12 level R79.89 and Hypomagnesemia E83.42 Assessments Encounter Date Diagnosis (ICD Code) Assessment Notes Treatment Notes Treatment Clinical Notes Section Notes 05/25/2025 Encounter for general adult medical examination without abnormal findings (ICD-10 - Z00.00) 06/01/2025 Encounter for general adult medical examination without abnormal findings (ICD-10 - Z00.00) Rec mammogram and colonoscopy when due. bone density every 2 years. discussed routine vaccines. Minicog normal. Discussed PHQ-9 results - feels her stress revolves around her 's health currently. offered counseling and/or medication if needed. Lipids discussed - continue health lifestyle - [place] score is low. 06/01/2025 Encounter for other screening for malignant neoplasm of breast (ICD-10 - Z12.39) Get mammogram with Dr. Dothager and continue routine well women exams. 05/25/2025 Anemia, unspecified (ICD-10 - D64.9) 05/25/2025 Hyperlipidemia, unspecified (ICD-10 - E78.5) 06/01/2025 Other insomnia (ICD-10 - G47.09) 06/01/2025 Other fatigue (ICD-10 - R53.83) 05/25/2025 Elevated vitamin B12 level (ICD-10 - R79.89) 06/01/2025 Acute allergic rhinitis (ICD-10 - J30.9) 05/25/2025 Hypomagnesemia (ICD-10 - E83.42) 06/01/2025 Other Fatigue, brain fog, and unrefreshed sleep: - Symptoms may be related to poor sleep quality, possibly due to sleep-disordered breathing or sleep apnea. Elevated CO2 may be a subtle sign of chronic low oxygen at night. - Recommended home polysomnography if symptoms persist after allergy season, especially if ongoing fatigue, brain fog, or unrefreshed sleep continues. - Discussed increased risk of memory issues, heart attack, and stroke with untreated sleep apnea. - Poor sleep quality can increase risk for Alzheimer's and dementia, especially with family history. - If sleep issues continue, home sleep study can be ordered and shipped to patient for evaluation. She will consider. Allergic rhinitis with Eustachian tube dysfunction: - Symptoms consistent with seasonal allergic rhinitis causing Eustachian tube dysfunction. - Recommended initiation of [id number]-[id number] nasal steroid spray (e.g., Flonase, Nasacort) for at least one week, especially prior to and during air travel, to help prevent Eustachian tube problems during decompression. - Advised to continue claritin. - Advised to contact if symptoms worsen or develop signs of sinus infection, such as increased head pressure, worsening drainage, or feeling significantly worse. - May is peak ragweed season; symptoms may persist until first wang. Weight management with semaglutide: - Advised gradual tapering of semaglutide dose as tolerated. - Patient is self-dosing every other week and reducing dose slowly. - If stopped abruptly, semaglutide may remain in system for up to 6 weeks; withdrawal symptoms (increased hunger/cravings) may appear after about a month. Use of CBD gummies for sleep: - Approved continued use of CBD gummies for sleep as there are no interactions with current medications and no side effects reported. - Not habit-forming and considered a more natural option than prescription sleep medications. Family history of Alzheimer's disease: - Family history of Alzheimer's disease noted as a concern. - Recommended maintaining social engagement, cognitive activities, regular exercise, and good sleep quality as preventive measures. - Poor sleep quality is a modifiable risk factor for Alzheimer's; home sleep study offered if sleep issues persist. Plan Of Treatment Next Appt Details Provider Name:Dr. Jacque rodas, 05/22/2026 09:30:00 AM, [address] [place], [address], [phone] Insurance Providers Payer Name Payer Address Payer Phone Subscriber Number Group Number Insured Name Patient Relationship to Insured Coverage Start Date Coverage End Date [employer] [address] [place] [address] [id number] Maggie Forde Self - patient is the insured Medical (General) History Medical History History ICD Code Anemia, unspecified D64.9 Hyperlipidemia, unspecified E78.5 Family history of ischemic h eart disease and other diseases of the circulatory system Z82.49 Hypomagnesemia E83.42 Pulmonary fibrosis, unspecified J84.10 Surgical History Surgery Date(Month/Year) laminectomy 2012 hysterectomy 02/2010 colonoscopy ,notes : Interna l Hemorrhoids, Diverticula repeat in 5 years 05/10/2021
== END 2025-07-11 09:37 | disposition home or self-care (01) ==
LOC: ANHFOHIMG 09:38
PROVIDERS: PCP Family Medicine; Visit Provider Obstetrics & Gynecology
DX: Z12.31 Encounter for screening mammogram for malignant neoplasm of breast (principal); R92.8 Other abnormal and inconclusive findings on diagnostic imaging of breast
CPT/HCPCS: 77063; 77067

== ENCOUNTER 2025-07-26 12:20 | Outpatient (CLI) | payer BC, SELFPAY ==
--- NOTE | ~2025-07-26 | DEXA_ITS ---
Bone Density Report Name: KATY TRUJILLO Age: 64 Sex: Female Ethnicity: White Date of : 1960 Indication: postmenopausal; screening for osteoporosis; height loss; hysterectomy; Referring Provider: MAYNOR MONTANA Study: Bone densitometry was performed. Exam Date: July 26, 2025 Accession number: [id number] Bone Density: Region BMD T-score Z-score Classification AP Spine(L1-L4) 0.986 -0.6 1.1 Normal Femoral Neck (Left) 0.660 -1.7 -0.2 Osteopenia Total Hip (Left) 0.840 -0.8 0.3 Normal Femoral Neck (Right) 0.652 -1.8 -0.3 Osteopenia Total Hip (Right) 0.842 -0.8 0.3 Normal Total Hip Mean 0.841 -0.8 0.3 Normal World Health Organization criteria for BMD impression classify patients as: Normal (T-score at or above -1.0), Osteopenia (T-score between -1.0 and -2.5), or Osteoporosis (T-score at or below -2.5). 10-year Fracture Risk(1): Major Osteoporotic Fracture 9.3% Hip Fracture 1.1% Reported Risk Factors: [place] (), Neck BMD=0.652, BMI=23.9 (1) FRAX(R) Version 3.08. Fracture probability calculated for an untreated patient. Fracture probability may be lower if the patient has received treatment. Clinical Information Provided by Patient: Has used the following medications: HRT (i.e. estrogen/hormone therapy) Has the following medical conditions: Hysterectomy Patient maximum height was 66 Menopause Age: 50 No regular weight bearing exercise Does not regularly consume dairy products Drinks caffeinated beverages Onset of menses at age 14 Number of children 2 Impression: The patient has low bone mass, based on the Right Femoral Neck T-score. The patient has an estimated ten-year risk of hip fracture of 1.1% and an estimated ten-year risk of major fracture of 9.3%, based on the WHO FRAX algorithm. Discussion: BONE DENSITY IS LOW AT ONE OR MORE SKELETAL SITES. This patient's lowest T-score is low at one or more skeletal sites. It meets the World Health Organization's (WHO) criteria for ?low bone mass? (T-score between -1.0 and -2.5). The patient's 10-year risk of fracture as calculated by FRAX is less than the threshold where pharmacological therapy is recommended by the National Osteoporosis Foundation (NOF). However, all treatment decisions require clinical judgment and consideration of individual patient factors, including patient preferences, comorbidities, previous drug use, risk factors not captured in the FRAX model (e.g., frailty, falls, vitamin D deficiency, increased bone turnover, interval significant decline in bone density) and possible under or overestimation of fracture risk by FRAX. The patient should follow a healthful lifestyle (good nutrition with adequate calcium and vitamin D, and appropriate weight-bearing exercise). Follow-Up: Consider repeating this study in 2 to 3 years to reassess this patient's status, or sooner if there is some new clinical indication. Reported by: LARS on 07/26/2025 12:50:00 PM. Reviewed, dictated and finalized at location A.
== END 2025-07-26 12:21 | disposition home or self-care (01) ==
PROVIDERS: PCP Family Medicine
DX: Z13.820 Encounter for screening for osteoporosis (principal); N95.9 Unspecified menopausal and perimenopausal disorder; M85.852 Other specified disorders of bone density and structure, left thigh; M85.851 Other specified disorders of bone density and structure, right thigh
CPT/HCPCS: 77080

== ENCOUNTER 2025-10-03 12:13 | Outpatient (CLI) | payer BC, SELFPAY ==
--- OUTSIDE RECORDS SUMMARY | 2024-06-22 02:45 | XMS_ITS ---
Author Organization [facility] Address [address] [place] [id number] Care Team Providers Care Lead Painter Name Role Phone Dr. Jacque Crane Primary Care Provider [phone] Herminia Mckinney Unavailable [phone] REASON FOR VISIT Yearly Check Up with [facility] Vital Signs Temperature 98.3 degrees Fahrenheit 06/22/20 24 Blood pressure systolic 122 mm Hg 06/22/20 24 Blood pressure diastolic 68 mm Hg 024 Heart Rate 80 /min 06/22/2024 Respiratory Rate 16 /min 06/22/2024 Height 66.00 in 06/22/2024 Weight 145.00 lbs 06/22/2024 BMI 23.40 kg/m2 06/22/2024 Oximetry 98 % 06/22/2024 Height-cm 167.64 cm 06/22/2024 Weight-kg 65.77 kg 06/22/2024 Encounters Encounter Location Date Provider Diagnosis [address] [id number] 06/22/2024 Herminia Mckinney Encounter for genera l adult medical examination without abnormal findings Z00.00 ; Acute maxillary sinusitis, unspecified J01.00 ; Encounter for immunization Z23 ; Spinal stenosis, cervical region M48.02 ; Allergic rhinitis, unspecified J30.9 ; Asymptomatic menopausal state Z78.0 ; Acute frontal sinusitis, unspecified J01.10 ; Encounter for other screening for malignant neoplasm of breast Z12.39 ; Immunization not carried out because of patient refusal Z28.21 ; Hyperlipidemia, unspecified E78.5 ; Acute atopic conjunctivitis, unspecified eye H10.10 ; Encounter for screening for osteoporosis Z13.820 ; Acute upper respiratory infection, unspecified J06.9 and Other seborrheic keratosis L82.1 Assessments Encounter Date Diagnosis (ICD Code) Assessment Notes Treatment Notes Treatment Clinical Notes Section Notes 06/22/2024 Encounter for general adult medical examination without abnormal findings (ICD-10 - Z00.00) 06/22/2024 Acute maxillary sinusitis, unspecified (ICD-10 - J01.00) 06/22/2024 Encounter for immunization (ICD-10 - Z23) 06/22/2024 Spinal stenosis, cervical region (ICD-10 - M48.02) 06/22/2024 Allergic rhinitis, unspecified (ICD-10 - J30.9) 06/22/2024 Asymptomatic menopausal state (ICD-10 - Z78.0) 06/22/2024 Acute frontal sinusitis, unspecified (ICD-10 - J01.10) 06/22/2024 Encounter for other screening for malignant neoplasm of breast (ICD-10 - Z12.39) 06/22/2024 Immunization not carried out because of patient refusal (ICD-10 - Z28.21) 06/22/2024 Hyperlipidemia, unspecified (ICD-10 - E78.5) 06/22/2024 Acute atopic conjunctivitis, unspecified eye (ICD-10 - H10.10) 06/22/2024 Encounter for screening for osteoporosis (ICD-10 - Z13.820) 06/22/2024 Acute upper respiratory infection, unspecified (ICD-10 - J06.9) 06/22/2024 Other seborrheic keratosis (ICD-10 - L82.1) Plan Of Treatment Next Appt Details Provider Name:Dr. Jacque Dunbar [facility], 05/22/2026 09:30:00 AM, [address] [place], [address], [phone] Progress Notes * Janet FORDEAnnOB:[birth year] (65 yo F)Acc No.[id number]:06/22/2024 Patient: Maggie Freitas Provider: Leslie Mckinney NP :1960 A ge:63 Y S ex:Female Date:06/22/2024 Phone: Address:[address] [place] [id number] Pcp:Dr. Jacque Crane Subjective: * Chief Complaints: * Y early Check Up with [facility] Objective: * Vitals: B P: 122/68 mm Hg, HR: 80 /min, RR: 16 /min, Temp: 98.3 F, Oxygen sat %: 98 %, Ht: 66.00 in, Wt: 145.00 lbs, Wt-k.77 kg, Ht-cm: 167.64 cm, BMI: 23.40 Index. Past Vitals:* 07/25/2023 HR: 86 /min, Oxygen sat %: 9 7 %, Wt: 149.01 lbs, Wt-k.59 kg * 06/27/2023 BP: 140/92 mm Hg, HR: 78 /mi n, Oxygen sat %: 98 %, Wt: 147.11 lbs, Wt-k.73 kg Assessment: * Assessment: 1. H yperlipidemia, unspecified - E78.5 S pecify :Src Diagnosis Name: Hyperlipidemia 2 . A cute atopic conjunctivitis, unspecified eye - H10.10 S pecify :Src Diagnosis Name: Allergic conjunctivitis 3 . A cute maxillary sinusitis, unspecified - J01.00 S pecify :Src Diagnosis Name: Maxillary sinusitis, acute 4 . A cute frontal sinusitis, unspecified - J01.10 S pecify :Src Diagnosis Name: Acute frontal sinusitis 5 . A cute upper respiratory infection, unspecified - J06.9 S pecify :Src Diagnosis Name: Viral upper respiratory tract infection 6 . A llergic rhinitis, unspecified - J30.9 S pecify :Src Diagnosis Name: Allergic rhinitis 7 . O ther seborrheic keratosis - L82.1 S pecify :Src Diagnosis Name: Seborrheic keratosis 8 . S julissa stenosis, cervical region - M48.02 S pecify :Src Diagnosis Name: Neuroforaminal stenosis of cervical spine 9 . E ncounter for general adult medical examination without abnormal findings - Z00.00 1 0. E ncounter for other screening for malignant neoplasm of breast - Z12.39 S pecify :Src Diagnosis Name: Screening for breast cancer 1 1. E ncounter for screening for osteoporosis - Z13.820 S pecify :Src Diagnosis Name: Screening for osteoporosis 1 2. E ncounter for immunization - Z23 1 3. I mmunization not carried out because of patient refusal - Z28.21 S pecify :Src Diagnosis Name: COVID-19 vaccine dose declined 1 4. A symptomatic menopausal state - Z78.0 S pecify :Src Diagnosis Name: Post-menopausal * Electronic signature of Dominik Mckinney on 10/03/2025 at 01:48 PM [employer] Sign off status: Pending * Provider: Leslie Mckinney NP Date: 0 06/22/2024 Generated for Latesha barba/Rossy/Hayden on: 1 12/04/2024 01:48 PM [employer]
--- OUTSIDE RECORDS SUMMARY | 2024-09-11 03:00 | XMS_ITS ---
Author Organization [facility] Address [address] [place] [phone] Care Team Providers Care Tooling Inspector Name Role Phone Dr. Jacque Crane Primary Care Provider [phone] Migration, Provider Unavailable Unavailable REASON FOR VISIT EMR-Jayden Encounters Encounter Location Date Provider Diagnosis [facility] [address] [place] [address] 09/11/2024 Provider Migration Plan Of Treatment Medication Medication Name Sig Start Date Stop Date Notes Medrol 4 MG Tablet Therapy Pack Oral; Duration: 0 08/04/2023 06/17/2024 complete,disco ntin uereason:Discontin ued Cefdinir 300 MG Capsule 1 Oral two times a day; Duration: 7 07/30/2023 08/05/2023 Amoxicillin-Pot Clavulanate 875-125 MG Tablet 1 Oral two times a day; Duration: 07/25/2023 07/29/2023 changed to cefdinir,discontin uereason:Discontin ued Cyclobenzaprine HCl 5 MG Tablet Oral; Duration: 10/07/2023 10/16/2023 Triamcinolone Acetonide 0.1 % Cream External two times a day; Duration: 0 09/07/2024 09/07/2024 Diclofenac Sodium 75 MG Tablet Delayed Release 1 Oral two times a day; Duration: 30 07/25/2023 06/17/2024 complete,discontin uereason:Discontin ued Next Appt Details Provider Name:Dr. Jacque rodas, 05/22/2026 09:30:00 AM, [address] [place] [address], [place], [address], [phone] Progress Notes * Zachariah FORDEOB:[birth year] (65 yo F)Acc No.[id number]:09/11/2024 Patient: Maggie BUNCH :1960 A ge:64 Y S ex:Female Phone: Address:[address] [place] [address], [phone] * Refills Stop Cyclobenzaprine HCl Tablet, 5 MG, Oral, 30, 1, Q8H, 0 Stop Diclofenac Sodium Tablet Delayed Release, 75 MG, Oral, 60, 1, two times a day, 30 Stop Amoxicillin-Pot Clavulanate Tablet, 875-125 MG, Oral, 20, 1, two times a day, 10 Stop Cefdinir Capsule, 300 MG, Oral, 14, 1, two times a day, 7 Stop Medrol Tablet Therapy Pack, 4 MG, Oral, 21, 0 Stop Cyclobenzaprine HCl Tablet, 5 MG, Oral, 30, 10 Stop Triamcinolone Acetonide Cream, 0.1 %, External, 60, two times a day, 0 Subjective: * Chief Complaints: * E MR-Jayden Objective: Past Vitals:* 06/22/2024 BP: 122/68 mm Hg, HR: 80 /mi n, Oxygen sat %: 98 %, Wt: 145.00 lbs, Wt-k.77 kg * 07/25/2023 HR: 86 /min, Oxygen sat %: 9 7 %, Wt: 149.01 lbs, Wt-k.59 kg * * Date:
--- OUTSIDE RECORDS SUMMARY | 2024-09-12 03:00 | XMS_ITS ---
Author Organization [facility] Address [address] [place] [address] [place] [address] Care Team Providers Care Doughnut Machine Operator Name Role Phone Dr. Jacque Crane Primary Care Provider [phone] Migration, Provider Unavailable Unavailable Allergies Allergen (clinical drug ingredient) Drug/Non Drug Allergy documented on EMR Reaction Allergy Type Onset Date Status escitalopram Lexapro Unknown Drug Allergy 07/02/2021 Act govind REASON FOR VISIT EMR-Jayden Medications Medication SIG (Take, Route, Frequency, Duration) Notes Start Date End Date Status Calcium 600 oral; Duration: 0 *Pick strength-form from Medispan for eRX* 02/11/2022 Active Semaglutide 1 mg/dose (4 mg/3 mL) subcutaneous; Duration: 0 *Pick strength-form from Medispan for eRX* 06/22/2024 Active Magnesium Oxide 400 MG Tablet 1 Oral every day; Duration: 0 02/11/2022 Active Biotin 1000 MCG Tablet 1 Oral every day; Duration: 0 02/11/2022 Active Social History Social History Additional Details Category Social Info Options Details Migrated Social History Migrated Social History Tobacco history:Never smoker , Alcohol history:Currently drinks alcohol ,notes : drinks on weekends only Encounters Encounter Location Date Provider Diagnosis [facility] [address] [place] [address] 09/12/2024 Provider Migration Plan Of Treatment Next Appt Details Provider Name:Dr. Jacque Dunbar [facility], 05/22/2026 09:30:00 AM, [address] [facility], [place], [address], [phone] Progress Notes * FORDEZachariah QUISPEOB:[birth year] (65 yo F)Acc No.[id number]:09/12/2024 Patient: Maggie BUNCH :1960 A ge:64 Y S ex:Female Phone: Address:[address] [place] [address], [place], [address] Subjective: * Chief Complaints: * E MR-Jayden * Surgical History: laminectomy 2012 hysterectomy 02/2010 colonoscopy ,notes : Internal Hemorrhoids, Diverticula repeat in 5 years 05/10/2021 * Social History: M igrated Social History: M igrated Social History: Tobacco history:Never smoker,Alcohol history:Currently drinks alcohol ,notes : drinks on weekends only. * Medications: T akingSemaglutide 1 mg/dose (4 mg/3 mL) subcutaneous , Notes to Pharmacist: *Pick strength-form from Medispan for eRX*Magnesium Oxide 400 MG Tablet 1 Oral every day Calcium 600 oral , Notes to Pharmacist: *Pick strength-form from Medispan for eRX*Biotin 1000 MCG Tablet 1 Oral every day Taking Semaglutide 1 mg/dose (4 mg/3 mL) subcutaneous , Notes to Pharmacist: *Pick strength-form from Medispan for eRX*Taking Magnesium Oxide 400 MG Tablet 1 Oral every day Taking Calcium 600 oral , Notes to Pharmacist: *Pick strength-form from Medispan for eRX*Taking Biotin 1000 MCG Tablet 1 Oral every day * Allergies: L exapro: Allergy - Onset Date 07/02/2021 Objective: Past Vitals:* 06/22/2024 BP: 122/68 mm Hg, HR: 80 /mi n, Oxygen sat %: 98 %, Wt: 145.00 lbs, Wt-k.77 kg * 07/25/2023 HR: 86 /min, Oxygen sat %: 9 7 %, Wt: 149.01 lbs, Wt-k.59 kg * * Date:
--- NOTE | ~2025-10-03 | MMUS_ITS ---
EXAMINATION: US breast RT limited, MM diagnostic shira RT w liz HISTORY: Follow-up TECHNIQUE: Craniocaudal and mediolateral oblique 3-D tomosynthesis images were obtained and synthetic 2-D images were generated. CAD analysis was submitted and interpreted. Grayscale sonography over the area(s) of interest with color Doppler if there is a finding. COMPARISON: July 11. Older prior studies dating back to 2020. BREAST PARENCHYMAL COMPOSITION: Dense: The breasts are heterogeneously dense, which may obscure small masses. MAMMOGRAM FINDINGS: Multiple convex contours are seen in the dense tissue of the right upper outer quadrant, suggesting underlying masses. There are no suspicious calcifications. No unexplained architectural distortion is seen. There are no skin or nipple abnormalities identified. There is no adenopathy seen on the images submitted. ULTRASOUND FINDINGS: Sonography through the upper outer quadrant demonstrates a multiplicity of simple cysts. The largest one is at 12:00 and has a maximum dimension of 2.1 cm. These findings account for the mammographic appearance. IMPRESSION: No mammographic or sonographic evidence to suggest malignancy is seen. The patient may return to screening mammography as per ACR guidelines. BI-RADS 2 - Benign. Reviewed, dictated and finalized at location A. L STRINGER IMPRESSION: No mammographic or sonographic evidence to suggest malignancy is seen. The lynda ent may return to screening mammography as per ACR guidelines. BI-RADS 2 - Benign.
--- OUTSIDE RECORDS SUMMARY | 2025-10-03 13:48 | XMS_ITS | Clinical Summary ---
Author Organization [facility] Center Address [address] [place] [address] Care Team Providers Care Software Performance Engineer Name Role Phone Dong Casper MD Primary Care Provider [phone] Allergies No known active allergies Medications No [...] on file Sexual Orientation Not on file Last Filed Vital Signs Vital Sign Reading Time Taken Comments Blood Pressure 139/71 09/21/2020 2:24 PM PROMOTIONS EXECUTIVE Pulse 67 09/21/2020 2:24 PM PROMOTIONS EXECUTIVE Temperature 36.6 C (97.9 F) 09/21/2020 2:24 PM PROMOTIONS EXECUTIVE Respiratory Rate - - Oxygen Saturation 100% 09/21/2020 2:24 PM PROMOTIONS EXECUTIVE Inhaled Oxygen Concentration - - Weight 68 kg (150 lb) 09/21/2020 2:24 PM PROMOTIONS EXECUTIVE Height 167.6 cm (5' 6) 09/21/2020 2:24 PM PROMOTIONS EXECUTIVE Body Mass Index 24.21 09/21/2020 2:24 PM PROMOTIONS EXECUTIVE Plan of Treatment Not on file Insurance [employer] Care Teams Software Performance Engineer Relationship Specialty Start Date End Date Dong Casper MD [address] [place] [address] PCP - General Family Practice 06/22/19
--- OUTSIDE RECORDS SUMMARY | 2025-10-03 13:49 | XMS_ITS | Patient Health Record ---
Author Organization [facility] dicine Address [address] [place] [address] Care Team Providers Care Receptionist Name Role Phone Dr. Jacque Crane Primary Care Provider [phone] Allergies Allergen (clinical drug ingredient) Drug/Non Drug Allergy documented on EMR Reaction Allergy Type Onset Date Status escitalopram Lexapro Unknown Drug Allergy 07/02/2021 Act govind Results Component Value Reference Range Flag Notes DEXA Hip and Spine Reviewed date:08/01/2025 11:48:08 AM Interpretation: Performing Lab: Notes/Report: Hemoglobin A1c {Glycosylated } Reviewed date:05/26/2025 06:34:28 PM Interpretation: Performing Lab: Notes/Report: LOCATION: [facility] Performed by: [place] [address] Cardiac Catheterization Technologist: Genaro Bruce DO Hemoglobin A1c 5.3 <=6.4 % Hemoglobin A1C < 5.7% = Normal 5.7-6.4% = Increased risk for future diabetes >=6.5% = Diabetes LOCATION LOCATION: [facility] eAvg Glucose 105 <=117 mg/dL eAG Reference Range <117 mg/dL = Normal 117-137 mg/dL = Increased Risk For Future Diabetes >137 mg/dL = Diabetes LOCATION LOCATION: [facility] Ferritin Reviewed date:05/26/2025 06:34:28 PM Interpretation: Performing Lab: Notes/Report: LOCATION: [facility] Performed by: [place] [id number] Cardiac Catheterization Technologist: Genaro Bruce DO Ferritin Lvl 102.0 11.0-306.8 ng/mL LOCATION LOCATION: [facility] CBC w Auto Diff Reviewed date:05/26/2025 06:34:28 PM Interpretation: Performing Lab: Notes/Report: LOCATION: [facility] Test Performed by: [place] [address] Cardiac Catheterization Technologist: Genaro Bruce DO WBC 4.5 4.0-11.7 K/mcL LOCATION LOCATION: [facility] RBC 4.50 3.80-5.41 x10*6/mcL LOCATION LOCATION: [facility] Hgb 12.6 11.3-15.2 g/dL LOCATION LOCATION: [facility] Hct 38.7 33.2-45.3 % LOCATION LOCATION: [facility] MCV 85.9 79.5-98.1 fL LOCATION LOCATION: [facility] MCH 28.1 27.0-34.2 pg LOCATION LOCATION: [facility] MCHC 32.7 31.8-35.3 g/dL LOCATION LOCATION: [facility] RDW 14.6 12.0-16.4 % LOCATION LOCATION: [facility] Platelets 238 149-393 K/mcL LOCATION LOCATION: [facility] MPV 9.3 7.0-11.0 fL LOCATION LOCATION: [facility] Neutro Auto 41.5 45.3-79.0 % L LOCATION LOCATION: [facility] Lymph Auto 44.9 11.8-45.9 % LOCATION LOCATION: [facility] Gallia Auto 8.8 4.4-12.0 % LOCATION LOCATION: [facility] Eosinophil Auto 4.1 0.0-6.3 % LOCATION LOCATION: [facility] Basophil Auto 0.7 0.2-1.6 % LOCATION LOCATION: [facility] Neutro Absolute 1.9 2.4-8.4 x10*3/mcL L LOCATION LOCATION: [facility] Lymph Absolute 2.0 0.8-3.7 x10*3/mcL LOCATION LOCATION: [facility] Gallia Absolute 0.4 0.3-1.1 x10*3/mcL LOCATION LOCATION: [facility] Eos Absolute 0.2 0.0-0.5 x10*3/mcL LOCATION LOCATION: [facility] Comprehensive Metabolic Pane l Reviewed date:05/26/2025 06:34:28 PM Interpretation: Performing Lab: Notes/Report: LOCATION: [facility] Test Performed by: [place] [id number] Cardiac Catheterization Technologist: Genaro Bruce DO Glucose Lvl 78 74-109 mg/dL ADA risk stratification for diabetes <100 mg/dL = Normal 100-125 mg/dL = Increased risk for future diabetes >=126 mg/dL = Diabetes, if on more than one testing occasion LOCATION LOCATION: [facility] BUN 10 7-25 mg/dL LOCATION LOCATION: [facility] Creatinine Lvl 0.71 0.60-1.20 mg/dL LOCATION LOCATION: [facility] eGFR CKD-EPI >90 >=90 mL/min/1.73 m2 The [...] CKD (Kidney Int Suppl 2013;3:1-150) LOCATION LOCATION: [facility] Calcium Lvl 8.8 8.6-10.3 mg/dL LOCATION LOCATION: [facility] Sodium Lvl 141 136-145 mmol/L LOCATION LOCATION: [facility] Potassium Lvl 4.9 3.5-5.1 mmol/L LOCATION LOCATION: [facility] Chloride Lvl 105 98-107 mmol/L LOCATION LOCATION: [facility] CO2 32 21-31 mmol/L H LOCATION LOCATION: [facility] Anion Gap 4.4 <=16.0 mmol/L LOCATION LOCATION: [facility] Alk Phos 46 34-104 unit/L LOCATION LOCATION: [facility] Bilirubin Total 0.3 0.3-1.0 mg/dL LOCATION LOCATION: [facility] Albumin Lvl 4.2 3.5-5.2 g/dL LOCATION LOCATION: [facility] Protein Total 6.3 6.4-8.9 g/dL L LOCATION LOCATION: [facility] Albumin/Globulin Ratio 2.0 1.1-2.5 LOCATION LOCATION: [facility] ALT 13 7-52 unit/L LOCATION LOCATION: [facility] AST 20 13-39 unit/L LOCATION LOCATION: [facility] Lipid Panel {Chol, Trig, HDL , LDL} Reviewed date:05/26/2025 06:34:28 PM Interpretation: Performing Lab: Notes/Report: LOCATION: [facility] Test Performed by: [place] [address] Cardiac Catheterization Technologist: Genaro Bruce DO Cholesterol Total 204 <=199 mg/dL H LOCATION LOCATION: [facility] Triglycerides 86 0-149 mg/dL Triglyceride Reference Ranges: <150 mg/dL Normal 150 - 199 mg/dL Borderline High 200 - 499 mg/dL High >=500 mg/dL Very High LOCATION LOCATION: [facility] LDL 129 <=100 mg/dL H LDL Optimal: <100 Near or above optimal: 100-129 Borderline high: 130-159 High: 160-189 Very high: >=190 Coronary heart disease risk factors should be considered when determining LDL goals. Please refer to ATPIII guidelines for further information. If LDL is not calculated, please call the lab to add on the direct LDL methodology, if desired. LOCATION LOCATION: [facility] HDL 58 23-92 mg/dL LOCATION LOCATION: [facility] Non HDL Cholesterol 147 <=130 mg/dL H LOCATION LOCATION: [facility] Chol/HDL 4 0-5 LOCATION LOCATION: [facility] Thyroid Stimulating Hormone Reviewed date:05/26/2025 06:34:28 PM Interpretation: Performing Lab: Notes/Report: LOCATION: [facility] Test Performed by: [place] [address] Cardiac Catheterization Technologist: Genaro Bruce DO TSH 1.00 0.45-5.33 mcIU/mL LOCATION LOCATION: [facility] Vitamin B12 Reviewed date:05/26/2025 06:34:28 PM Interpretation: Performing Lab: Notes/Report: LOCATION: [facility] Test Performed by: [place] [address] Cardiac Catheterization Technologist: Genaro Bruce DO Vitamin B12 Lvl 788 180-914 pg/mL Vitamin B12 Interpretation: Normal Range: 180-914 pg/mL Indeterminate: 140-180 pg/mL Deficient: <140 pg/mL LOCATION LOCATION: [facility] Iron Level and TIBC Reviewed date:05/26/2025 06:34:28 PM Interpretation: Performing Lab: Notes/Report: LOCATION: [facility] Test Performed by: [place] [address] Cardiac Catheterization Technologist: Genaro Bruce DO Iron Lvl 73 50-212 mcg/dL LOCATION LOCATION: [facility] Transferrin 196 203-362 mg/dL L LOCATION LOCATION: [facility] TIBC 274 250-420 mcg/dL LOCATION LOCATION: [facility] Iron Sat 27 20-55 % LOCATION LOCATION: [facility] Uric Acid Reviewed date:05/26/2025 06:34:28 PM Interpretation: Performing Lab: Notes/Report: LOCATION: [facility] Test Performed by: [place] [address] Cardiac Catheterization Technologist: Genaro Bruce DO Uric Acid 5.4 2.3-6.6 mg/dL LOCATION LOCATION: [facility] MAMMOGRAM, SCREENING Reviewed date:07/15/2025 07:55:57 AM Interpretation:BIRAD0- needs more imaging Performing Lab: Notes/Report: BIRAD0- needs more imaging T4 Free Reviewed date:05/26/2025 06:34:28 PM Interpretation: Performing Lab: Notes/Report: LOCATION: [facility] Test Performed by: [place] [address] Cardiac Catheterization Technologist: Genaro Bruce DO T4 Free 0.89 0.60-1.70 ng/dL LOCATION LOCATION: [facility] Magnesium Reviewed date:05/26/2025 06:34:28 PM Interpretation: Performing Lab: Notes/Report: LOCATION: [facility] Test Performed by: [place] [address] Cardiac Catheterization Technologist: Genaro Bruce DO Magnesium Lvl 2.1 1.6-2.4 mg/dL LOCATION LOCATION: [facility] Reason For Referral No Information Medications Medication SIG (Take, Route, Frequency, Duration) Notes Start Date End Date Status Magnesium Oxide 400 MG Tablet 1 Oral every day; Duration: 0 02/11/2022 Active Semaglutide 1 mg/dose (4 mg/3 mL) subcutaneous; Duration: 0 *Pick strength-form from [employer] for eRX* 06/22/2024 Active Progesterone 200 MG Capsule 1 capsule at bedtime Orally Once a day Active Biotin 1000 MCG Tablet 1 Oral every day; Duration: 0 02/11/2022 Active Calcium 600 oral; Duration: 0 *Pick strength-form from [employer] for eRX* 02/11/2022 Active Immunizations Vaccine Route Administration Date Status Comme nts Tdap Unknown 11/17/2018 Administered Tdap Unknown 07/09/2019 Administered Shingrix Unknown 02/11/2022 Administered Shingrix Unknown 06/30/2023 Administered Influenza, seasonal, injecta ble, preservative free, 6-35 months Unknown 07/09/2019 Administered Social History Social History Additional Details Category Social Info Options Details Migrated Social History Migrated Social History Tobacco history:Never smoker , Alcohol history:Currently drinks alcohol ,notes : drinks on weekends only Problems Problem Type SNOMED Code ICD Code Onset Dates Problem Status W/U Status Risk Notes Problem Hypomagnesemia (303622021) Hypomagnesemia (E83.42) Active confirmed Problem Insomnia (904036320) Other insomnia (G47.09) Active confirmed Problem Hyperlipidemia (07505499) Hyperlipidemia, unspecified (E78.5) 06/27/20 Active confirmed Problem Pulmonary fibrosis (91844319) Pulmonary fibrosis, unspecified (J84.10) 04/04/20 23 Active confirmed Problem Synovial popliteal cyst of right knee (disorder) (3143702555) Synovial cyst of popliteal space [Villar[place]], right knee (M71.21) 02/12/20 22 Active confirmed Problem Postmenopausal state (32976954) Asymptomatic menopausal state (Z78.0) 02/12/20 22 Active confirmed Problem Normal body mass index (22963653) Body mass index (BMI) 24.0-24.9, adult (Z68.24) 06/27/20 23 Active confirmed Problem Family history of ischemic heart disease (850364822) Family history of ischemic heart disease and other diseases of the circulatory system (Z82.49) 06/27/20 23 Active confirmed Problem Anemia (906293459) Anemia, unspecified (D64.9) 02/12/20 22 Active confirmed Problem Paresthesia (finding) (09621819) Paresthesia of skin (R20.2) 06/27/20 23 Active confirmed Problem Spinal stenosis in cervical region (28313943) Spinal stenosis, cervical region (M48.02) 10/13/20 23 Active confirmed Problem Spasmodic torticollis (17736990) Spasmodic torticollis (G24.3) 06/27/20 23 Active confirmed Vital Signs Heart [...] 06/01/2025 Encounters Encounter Location Date Provider Diagnosis [address] [address] 06/01/2025 Dr. Jacque Crane Encounter for other screening for malignant neoplasm of breast Z12.39 ; Encounter for general adult medical examination without abnormal findings Z00.00 ; Other insomnia G47.09 ; Other fatigue R53.83 and Acute allergic rhinitis J30.[address] [address] 05/25/2025 Dr. Jacque Crane Encounter for general [...] Lipids discussed - continue health lifestyle - Curlew score is low. 06/01/2025 Encounter for other screening for malignant neoplasm of breast (ICD-10 - Z12.39) Get mammogram with Dr. Coyle and continue routine well women exams. 05/25/2025 Anemia, unspecified (ICD-10 - D64.9) 05/25/2025 Hyperlipidemia, unspecified (ICD-10 - E78.5) 06/01/2025 Other insomnia (ICD-10 - G47.09) 06/01/2025 Other fatigue (ICD-10 - R53.83) 06/01/2025 Acute allergic rhinitis (ICD-10 - J30.9) 05/25/2025 Elevated vitamin B12 level (ICD-10 - R79.89) 05/25/2025 Hypomagnesemia (ICD-10 - E83.42) 06/01/2025 Other [...] Eustachian tube dysfunction. - Recommended initiation of [id number] nasal steroid spray (e.g., Flonase, Nasacort) for [...] Name:Dr. Jacque rodas, 05/22/2026 09:30:00 AM, [address] [employer] [facility], [place], [address], [phone] Insurance Providers Payer Name Payer Address Payer Phone Subscriber Number Group Number Insured Name Patient Relationship to Insured Coverage Start Date Coverage End Date [employer] [address] [place] [address] [id number] Maggie Forde Self - patient is the [...]
== END 2025-10-03 12:14 | disposition home or self-care (01) ==
LOC: ANHFOHIMG 12:15
PROVIDERS: PCP Family Medicine; Visit Provider Obstetrics & Gynecology
DX: R92.8 Other abnormal and inconclusive findings on diagnostic imaging of breast (principal)
CPT/HCPCS: 76642; 77061; 77065; G0279